=== PATIENT | male | born 1980 | race Caucasian/White ===

== ENCOUNTER 2016-07-27 03:45 | Emergency (ER) | payer SELFPAY ==
[~2016-07-27] VITALS: Ht 193 cm; Wt 97.5 kg
--- NOTE | 2016-07-27 03:50 | NUR ---
pt to er c/o left testicular pain x 1 week s/p having sex. no immediate signs of distress noted. pt vital signs stable. pt to er bed waiting to be seen by md.
[2016-07-27 04:25] LABS: APPEARANCE,URINE SL CLOUDY (CLEAR); BILIRUBIN,URINE NEGATIVE (NEGATIVE); BLOOD, URINE NEGATIVE Ery/uL (NEGATIVE); COLOR,URINE YELLOW (YELLOW); KETONES,URINE NEGATIVE (NEGATIVE); LEUKOCYTE ESTERASE ,URINE TRACE (NEGATIVE); NITRITE, URINE NEGATIVE (NEGATIVE); PROTEIN,URINE TRACE mg/dl (NEGATIVE); UGLUCOSE NEGATIVE (NEGATIVE); UROBILINOGEN,URINE 0.2 EU/dL (0.2)
[2016-07-27 04:34] LABS: ADD URINE CULTURE YES
[2016-07-27 04:35] LABS: BACTERIA,URINE None seen /HPF (None Seen); MUCUS,URINE Few /LPF (None Seen); SQUAMOUS EPITHELIAL CELL,UR Rare /HPF (None Seen); WBC,URINE 51-80 /HPF (0-3)
[2016-07-27] MEDS ORDERED: CEFTRIAXONE 500 MG VIAL ONE (05:17)
[2016-07-27] MEDS ORDERED: LIDOCAINE /MPF 1% VIAL 5 ML VIAL ONE (05:17)
[2016-07-27] MEDS ORDERED: CEFTRIAXONE 500 MG VIAL IM ONE (05:30)
--- NOTE | 2016-07-27 05:31 | NUR ---
pt ok to discharge per dr bryant. Patient discharged to home in stable condition. Written and verbal after care instructions given. Patient verbalizes understanding of instruction.Patient is awake and alert to self, day, and place. pt ambulatory with a steady gait
[2016-07-27 05:32] VITALS: BP 129/75
== END 2016-07-27 05:33 | disposition home or self-care (01) ==
LOC: ER 03:48
DX: N45.1 Epididymitis (principal); N43.3 Hydrocele, unspecified; I86.1 Scrotal varices
CPT/HCPCS: 76870; 81001; 87086; 96372; 99285; A4606; J0696; J3490; Z7610; 81000-TC

== ENCOUNTER 2016-07-28 01:35 | Emergency (ER) | payer SELFPAY ==
[~2016-07-28] VITALS: Ht 185.4 cm; Wt 90.7 kg
[2016-07-28 02:00] VITALS: BP 144/63
== END 2016-07-28 02:12 | disposition home or self-care (01) ==
LOC: ER 01:42
DX: N45.1 Epididymitis (principal); Z76.0 Encounter for issue of repeat prescription
CPT/HCPCS: A4606; Z7610